=== PATIENT | male | born 1975 ===

== ENCOUNTER → 2016-09-12 | Outpatient (CLI) | payer OTHER ==
--- NOTE | 2016-09-12 09:10 | REP ---
Clinical: Left testicular pain with possible mass by physical examination. Technique: Real time townsend scale and color Doppler evaluation using linear high frequency transducer. Findings: With the exception of a simple 8.3 mm right epididymal head cyst, the bilateral testicles and epididymi are normal in appearance, echogenicity, contour, and vascularity. No intratesticular mass lesion, infectious/inflammatory process, or torsion is identified. No hydrocele. No varicocele. Right testicle measures 4.7 x 2.3 x 2.9 cm. Left testicle measures 4.5 x 2.5 x 2.6 cm. Impression: Simple benign 8.3 mm right epididymal head cyst. Otherwise normal examination. Signed by Cornelio Cortez MD 09/12/2016 09:01 A
== END ==
LOC: M RAD 08:28
PROVIDERS: ATTEND Surgery
DX: N50.89 Other specified disorders of the male genital organs (principal)